=== PATIENT | female | born 1995 ===

== ENCOUNTER 2025-02-05 15:50 | Emergency (ER) | payer MEDICAID ==
[2025-02-05] MEDS ORDERED: Sodium Chloride 0.9% 10 ML Syringe FLUSH PRN (16:01)
[2025-02-05] MEDS: Nitroglycerin 0.4 MG Tab.SL SL ONE (16:17)
[2025-02-05 16:28] LABS: BASOPHILS PERCENT AUTO 0.5 % (0.0-1.0); EOSINOPHILS PERCENT AUTO 1.6 % (1.0-3.0); LYMPHOCYTES PERCENT AUTO 26.8 % (20.5-50.1); MONOCYTES PERCENT AUTO 5.6 % (2-8); NEUTROPHILS PERCENT AUTO 65.5 % (42.2-75.2); PLATELET COUNT,PLT 288 10^3/uL (150-450); RED BLOOD CELL COUNT 4.93 10^6/uL (4.2-5.4); WHITE BLOOD CELL COUNT,WBC 11.0 10^3/uL (5.0-10.0)
[2025-02-05 16:50] LABS: A/G RATIO 1.0; ALANINE AMINOTRANSFERASE,ALT 24.0 U/L (14-59); ASPARTATE AMNIOTRANSFERASE,AST 13.0 U/L (15-37); BILIRUBIN TOTAL 0.3 mg/dL (0.2-1.0); BLOOD UREA NITROGEN,BUN 13.0 mg/dL (7-18); CARBON DIOXIDE,CO2 27.0 mmol/L (21-32); CHLORIDE,CL 101.0 mmol/L (98-107); CREATININE 0.72 mg/dL (0.55-1.02); EST CRCL DRUG DOSING (CG) 104.68 mL/min; GLUCOSE RANDOM 89.0 mg/dL (70-99); POTASSIUM,K 4.4 mmol/L (3.5-5.1); PROTEIN TOTAL,TP 8.5 g/dL (6.4-8.2); SODIUM,NA 138.0 mmol/L (136-145)
[2025-02-05 16:52] LABS: ESTIMATED GFR 117.0 mL/min (>=60)
[2025-02-05] MEDS: GI Cocktail Oral Solution 30 ML PO ONE (16:53)
[2025-02-05] MEDS: Ketorolac 30 MG/ML SDV IVPUSH ONE (17:11)
[2025-02-05 17:30] LABS: INR 0.9 (0.9-1.2); PTT,PARTIAL THROMBOPLSTIN TIME 32.9 SEC (22.0-34.0)
== END 2025-02-05 19:16 | disposition home or self-care (01) ==
LOC: DL.ED 15:50
DX: M94.0 Chondrocostal junction syndrome [Tietze] (principal); Z91.018 Allergy to other foods
CPT/HCPCS: 36415; 71045; 80053; 83690; 83735; 84484; 85025; 85379; 85610; 85730; 93005; 96374; 99285; A9270; J1885